=== PATIENT | male | born 1980 | race Caucasian/White ===

== ENCOUNTER 2016-10-17 16:50 | Emergency (ER) | payer OTHER ==
[~2016-10-17] VITALS: Ht 190.5 cm; Wt 108.0 kg
[~2016-10-17 16:50] MED LIST: CLIN1CAP5 PO; TOBRA.3%O LEFT EYE
[2016-10-17 16:55] VITALS: BP 125/93; PULSE 91; RESP 15; TEMP 98.1; O2SAT 98
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
--- NOTE | 2016-10-17 18:48 | RADHPO ---
EXAM DATE/TIME: 10/17/2016 18:08 [facility] COMPARISON: No previous studies available for comparison. INDICATIONS : Left knee pain after twisting on slide. MEDICAL HISTORY : None. SURGICAL HISTORY : None. ENCOUNTER: Initial ACUITY: 2 days PAIN SCORE: 8/10 LOCATION: Left knee FINDINGS: Four view examination of the left knee demonstrates no evidence of fracture or dislocation. Bony min eralization is normal. The articular surfaces are intact. The suprapatellar soft tissues have a nor mal configuration. CONCLUSION: Unremarkable examination of the left knee. Vinnie Zayas MD on October 17, 2016 at 18:46 Board Certified Radiologist. This report was verified electronically.
[2016-10-17] MEDS ORDERED: IBUP800T23 PO (19:08)
== END 2016-10-17 19:30 | disposition home or self-care (01) ==
LOC: PHEFT 16:50
DX: S83.422A Sprain of lateral collateral ligament of left knee, initial encounter (principal); J45.909 Unspecified asthma, uncomplicated; W23.0XXA Caught, crushed, jammed, or pinched between moving objects, initial encounter; Y93.18 Activity, surfing, windsurfing and boogie boarding
CPT/HCPCS: 73564; 99283

== ENCOUNTER 2017-01-25 09:09 | Emergency (ER) | payer OTHER ==
[~2017-01-25] VITALS: Ht 190.5 cm; Wt 107.0 kg
[~2017-01-25 09:09] MED LIST changes: -CLIN1CAP5 PO; +IBUP800T23 PO; -TOBRA.3%O LEFT EYE
[2017-01-25 09:12] VITALS: BP 137/84; PULSE 88; RESP 16; TEMP 98.4; O2SAT 98
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
[2017-01-25] MEDS ORDERED: VANCOMYCIN INJ 1,000 MG in SODIUM CHLOR 0.9% 250 ML INJ 250 ML IV ONE (09:45)
[2017-01-25] MEDS ORDERED: SODIUM CHLORIDE 0.9% FLUSH 10 ML FLUSH IVF PRN (09:45)
[2017-01-25] MEDS ORDERED: KETOROLAC TROMETHAMINE 30 MG/ML (IVP) VIAL IVP ONE (09:45)
[2017-01-25] MEDS ORDERED: ONDANSETRON HCL 4 MG/2 ML VIAL IV PUSH ONE (09:45)
[2017-01-25] MEDS ORDERED: LIDOCAINE 2%/EPINEPHrine 1:100,000 30ML MDV INFIL ONE (09:45)
[2017-01-25] MEDS ORDERED: MORPHINE SULFATE 4 MG/ML INJ IV ONE ×2 (09:45→10:45)
[2017-01-25 09:58] LABS: AUTOMATED NEUTROPHIL # 11.2 TH/MM3 (1.8-7.7); BASOPHIL # 0.1 TH/MM3 (0-0.2); BASOPHIL % 0.6 % (0.0-2.0); EOSINOPHIL # 0.3 TH/MM3 (0-0.4); EOSINOPHIL % 2.2 % (0.0-4.0); HEMATOCRIT 45.7 % (39.0-51.0); LYMPH % 14.5 % (9.0-44.0); LYMPHOCYTE # 2.2 TH/MM3 (1.0-4.8); MEAN CELL VOLUME 88.1 FL (80.0-100.0); MONO % 8.3 % (0.0-8.0); NEUT % 74.4 % (16.0-70.0); PLATELET COUNT 243 TH/MM3 (150-450); RED BLOOD COUNT 5.19 MIL/MM3 (4.50-5.90)
[2017-01-25 09:59] LABS: HEMO FLAGS DIFF FINAL
[2017-01-25] MEDS ORDERED: LIDOCAINE 2%/EPINEPHrine 1:100,000 50ML MDV INFIL ONE (10:00)
[2017-01-25 10:13] LABS: POTASSIUM 3.8 MEQ/L (3.5-5.1)
[2017-01-25 10:17] LABS: BICARBONATE 28.1 MEQ/L (21.0-32.0)
[2017-01-25] MEDS ORDERED: CLIN1CAP6 PO (10:35)
[2017-01-25] MEDS ORDERED: NORC5TAB PO (10:35)
[2017-01-25 11:00] VITALS: BP 140/85; PULSE 80; RESP 16; O2SAT 97
--- NOTE | 2017-01-25 11:26 | RADRPT ---
EXAM DATE/TIME: 01/25/2017 09:53 [facility] COMPARISON: No previous studies available for comparison. INDICATIONS : Right knee pain and swelling, started as a possible bug bite. MEDICAL HISTORY : None. SURGICAL HISTORY : None. ENCOUNTER: Initial ACUITY: 1 week PAIN SCORE: 8/10 LOCATION: Right knee FINDINGS: Four view examination of the right knee demonstrates no evidence of fracture or dislocation. Bony mi neralization is normal. The articular surfaces are intact. The suprapatellar soft tissues have a no rmal configuration. There is moderate soft tissue thickening in the prepatellar soft tissues, measur ing up to 3 cm in thickness; a radiopaque foreign body seen. CONCLUSION: 1. Osseous structures are grossly intact. 2. Prepatellar soft tissue thickening/swelling. Tj Champagne MD on January 25, 2017 at 11:23 Board Certified Radiologist. This report was verified electronically.
[2017-01-25] MEDS ORDERED: IBUP800T23 PO (11:30)
[2017-01-25 12:21] VITALS: BP 136/83
== END 2017-01-25 12:23 | disposition home or self-care (01) ==
LOC: PHED 09:09
DX: M71.161 Other infective bursitis, right knee (principal); L02.415 Cutaneous abscess of right lower limb; B95.62 Methicillin resistant Staphylococcus aureus infection as the cause of diseases classified elsewhere; Z23 Encounter for immunization
CPT/HCPCS: 10061; 73564; 80048; 85025; 86403; 87040; 87070; 87186; 96374; 96375; 99284; J1885; J2270; J2405; J3370; J7050

== ENCOUNTER 2017-01-27 08:58 | Emergency (ER) | payer OTHER ==
[~2017-01-27] VITALS: Ht 190.5 cm; Wt 107.7 kg
[~2017-01-27 08:58] MED LIST changes: +CLIN1CAP6 PO; +NORC5TAB PO
[2017-01-27 09:01] VITALS: BP 140/69; PULSE 96; RESP 15; TEMP 97.9; O2SAT 98
[2017-01-27] MEDS ORDERED: MORPHINE SULFATE 4 MG/ML INJ IM ONE (09:15)
[2017-01-27] MEDS ORDERED: PROMETHAZINE INJ 25 MG/ML VIAL IM ONE (09:15)
[2017-01-27] MEDS ORDERED: KETOROLAC TROMETHAMINE 60 MG/2 ML (IM) VIAL IM ONE (09:15)
[2017-01-27] MEDS ORDERED: NORC5TAB PO (09:22)
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
== END 2017-01-27 10:20 | disposition home or self-care (01) ==
LOC: PHED 08:58
DX: M71.161 Other infective bursitis, right knee (principal)
CPT/HCPCS: 96372; 99284; J1885; J2270; J2550

== ENCOUNTER → 2017-06-29 | Outpatient (CLI) | payer OTHER ==
[~2017-06-29] MED LIST changes: -CLIN1CAP6 PO; +CLIN300C5 PO; +IBUP1TAB7 PO; -IBUP800T23 PO
--- NOTE | 2017-06-29 13:33 | RADRPT ---
EXAM DATE/TIME: 06/29/2017 13:20 [facility] COMPARISON: No previous studies available for comparison. INDICATIONS : Short of breath. MEDICAL HISTORY : Asthma, smoker SURGICAL HISTORY : None. ENCOUNTER: Initial ACUITY: 1 month PAIN SCORE: 0/10 LOCATION: Bilateral chest FINDINGS: PA and lateral views of the chest demonstrate the lungs to be symmetrically aerated without evidence of mass, infiltrate or effusion. The cardiomediastinal contours are unremarkable. Osseous structure s are intact. CONCLUSION: No acute cardiopulmonary process. Lungs are clear. Casey Lopez MD on June 29, 2017 at 13:29 Board Certified Radiologist. This report was verified electronically.
== END ==
LOC: HRSP 12:13
DX: J45.909 Unspecified asthma, uncomplicated (principal); R06.00 Dyspnea, unspecified
CPT/HCPCS: 71046; 94060; 94726; 94729